=== PATIENT | female | born 1950 | race Caucasian/White ===

== ENCOUNTER → 2016-08-31 | Outpatient (REF) | payer MEDICARE, OTHER, BC ==
[~2016-08-31] MED LIST: ACET65TA OR; CIPR500T4 OR; FLAG500T OR; GLUC1000 OR; IBUP600T OR; PAIN325T OR; VICO5TAB OR
[2016-08-31 18:58] LABS: PERCENT SATURATION 28.2 % (13.2-37.4)
== END ==
LOC: M LAB REF 16:14
PROVIDERS: ATTEND Internal Medicine
DX: D64.9 Anemia, unspecified (principal)

== ENCOUNTER → 2017-01-13 | Outpatient (CLI) | payer MEDICARE, BC ==
[~2017-01-13] MED LIST changes: +CALC500T21 PO; +DOXY100C37 PO; +FERR325T16 PO; +LETR2.5T2 PO; +METF-415 PO; +MULTCAP11 PO; +OMEP40CA2 PO; +VITA1CAP2 PO; +VITA400C7 PO; +VITA500T PO
--- NOTE | 2017-01-17 09:12 | DEXA ---
AP SPINE L1 - L4 1.054 -1.1 0.5 LT FEMUR TOTAL 0.908 -0.8 0.4 RT FEMUR TOTAL 0.850 -1.3 0.0 TOTAL BODY TOTAL OTHER DUAL FEMUR FRAX* ASSESSMENT Risk factors: Not performed. 10 year probability of fracture Major osteoporotic fracture % Hip fracture % COMMENTS: There is low bone density of the spine and hips. The density of the spine is decreased 14.8% since the initial exam on 04/2004. The spine density has decreased 3.3% since the most recent exam on 01/2016. The density of the left hip has decreased 9.5% since the initial exam on 2003. The density of the left hip has decreased 1.1% since the most recent exam on 2015. The density of the right hip has decreased 11.1% since the initial exam on 2003. The density of the right hip has increased 2.7% since the most recent exam on 2015. FOLLOW-UP: Recommendation for the next bone density exam: 2 years. MARCIE
== END ==
LOC: M WHC 12:54
PROVIDERS: ATTEND Internal Medicine Medical Oncology
DX: C50.912 Malignant neoplasm of unspecified site of left female breast (principal)

== ENCOUNTER 2017-03-19 21:54 | Emergency (ER) | payer MEDICARE, BC, OTHER ==
[~2017-03-19] VITALS: Ht 162.6 cm; Wt 95.5 kg
[~2017-03-19 21:54] MED LIST changes: -CALC500T21 PO; -DOXY100C37 PO; -FERR325T16 PO; -LETR2.5T2 PO; -METF-415 PO; -MULTCAP11 PO; -OMEP40CA2 PO; -VITA1CAP2 PO; -VITA400C7 PO; -VITA500T PO
[2017-03-19 21:55] VITALS: BP 144/71
[2017-03-19] MEDS ORDERED: LETR2.5T2 PO (22:03)
[2017-03-19] MEDS ORDERED: METF-415 PO (22:03)
[2017-03-19] MEDS ORDERED: OMEP40CA2 PO (22:03)
[2017-03-19] MEDS ORDERED: CALC500T21 PO (22:03)
[2017-03-19] MEDS ORDERED: FERR325T16 PO (22:03)
[2017-03-19] MEDS ORDERED: VITA400C7 PO (22:03)
[2017-03-19] MEDS ORDERED: MULTCAP11 PO (22:03)
[2017-03-19] MEDS ORDERED: VITA500T PO (22:03)
[2017-03-19] MEDS ORDERED: VITA1CAP2 PO (22:03)
[2017-03-19] MEDS ORDERED: DOXY100C37 PO ×2 (22:25→22:47)
[2017-03-19] MEDS ORDERED: DOXYCYCLINE HYCLATE 100 MG TAB PO ONE (22:30)
== END 2017-03-19 22:32 | disposition home or self-care (01) ==
LOC: M ED 21:54
DX: L03.221 Cellulitis of neck (principal); S10.96XA Insect bite of unspecified part of neck, initial encounter; W57.XXXA Bitten or stung by nonvenomous insect and other nonvenomous arthropods, initial encounter; Y92.89 Other specified places as the place of occurrence of the external cause; Y93.89 Activity, other specified; Y99.8 Other external cause status; E11.9 Type 2 diabetes mellitus without complications; K76.0 Fatty (change of) liver, not elsewhere classified; G43.909 Migraine, unspecified, not intractable, without status migrainosus; Z85.3 Personal history of malignant neoplasm of breast; Z79.899 Other long term (current) drug therapy; Z79.84 Long term (current) use of oral hypoglycemic drugs; Z88.1 Allergy status to other antibiotic agents; Z88.2 Allergy status to sulfonamides

== ENCOUNTER → 2017-09-07 | Outpatient (CLI) | payer MEDICARE, BC, OTHER | LOC: M WUC 16:09 | DX: J70.8 Respiratory conditions due to other specified external agents (principal); T59.894A Toxic effect of other specified gases, fumes and vapors, undetermined, initial encounter | CPT/HCPCS: 71046 ==

== ENCOUNTER → 2018-02-21 | Outpatient (REF) | payer MEDICARE, OTHER ==
[2018-02-23 15:46] LABS: HPV HYBRID CAPTURE II Negative (Negative)
== END ==
LOC: M SFHCWAGY 14:50
DX: Z12.4 Encounter for screening for malignant neoplasm of cervix (principal); N95.2 Postmenopausal atrophic vaginitis
CPT/HCPCS: G0123

== ENCOUNTER → 2018-02-21 | Outpatient (CLI) | payer MEDICARE, BC | LOC: M WHC 14:13 | DX: M85.80 Other specified disorders of bone density and structure, unspecified site (principal); Z78.0 Asymptomatic menopausal state; Z12.4 Encounter for screening for malignant neoplasm of cervix; N95.2 Postmenopausal atrophic vaginitis | CPT/HCPCS: 77080; G0123 ==

== ENCOUNTER → 2018-03-21 | Outpatient (REF) | payer MEDICARE, OTHER ==
[2018-03-21 14:32] LABS: FERRITIN 14 NG/ML (8-252); IRON (FE) 67 UG/DL (50-170); PERCENT SATURATION 17.6 % (13.2-45.0); TOTAL IRON BINDING CAPACITY 381 UG/DL (250-450)
== END ==
LOC: M LAB REF 12:40
DX: D50.9 Iron deficiency anemia, unspecified (principal)
CPT/HCPCS: 83550

== ENCOUNTER → 2019-02-08 | Outpatient (CLI) | payer MEDICARE, BC ==
[~2019-02-08] MED LIST changes: +CALC500T21 PO; +CALC500T60 PO; +DOXY100C37 PO; +FERR325T16 PO; +LETR2.5T2 PO; +METF-415 PO; +MULTCAP11 PO; +MULTTAB26 PO; +OMEP40CA97 PO; +VITA-183 PO; +VITA400C5 PO; +VITA400C7 PO; +VITA500T PO
--- NOTE | 2019-02-12 11:22 | DEXA ---
AP SPINE L1 - L4 1.067 -1.0 0.6 LT FEMUR TOTAL 0.871 -1.1 0.3 LT NECK 0.846 -1.4 0.2 RT FEMUR TOTAL 0.820 -1.5 -0.1 RT NECK 0.832 -1.5 0.1 TOTAL BODY TOTAL OTHER COMMENTS: There is low bone density of the spine and hips. The decreased density of the spine does represent a significant change. The decreased density of the left hip does represent a significant change. The decreased density of the right hip does represent a significant change. The density of the spine has decreased 13.7% since the initial exam on 04/28/2004. The spine density has decreased 3.4% since the most recent exam on 02/21/2018. The density of the left hip has decreased 13.2% since the initial exam on 04/28/2004. The density of the left hip has decreased 5.2% since the initial exam on 02/21/2018. The density of the right hip has decreased 14.2% since the initial exam on 04/28/2004. The density of the right hip has decreased 2.7% since the most recent exam on 02/21/2018. FOLLOW-UP: Recommendation for the next bone density exam: 2 years. MARCIE
== END ==
LOC: M WHC 13:05
PROVIDERS: ATTEND Internal Medicine Medical Oncology
DX: Z51.81 Encounter for therapeutic drug level monitoring (principal); Z79.899 Other long term (current) drug therapy; Z85.3 Personal history of malignant neoplasm of breast; M85.851 Other specified disorders of bone density and structure, right thigh; M85.852 Other specified disorders of bone density and structure, left thigh; M85.88 Other specified disorders of bone density and structure, other site

== ENCOUNTER → 2019-10-30 | Outpatient (REF) | payer MEDICARE, OTHER ==
[~2019-10-30] MED LIST changes: +VITA-243 PO; +VITA1CAP15 PO; -VITA400C5 PO; -VITA500T PO
[2019-10-31 09:27] LABS: HEPATITIS C VIRUS ABY INDEX 0.3 INDEX (<0.8)
== END ==
LOC: M LAB REF 12:04
PROVIDERS: ATTEND Internal Medicine
DX: Z01.89 Encounter for other specified special examinations (principal); D50.9 Iron deficiency anemia, unspecified

== ENCOUNTER → 2019-11-13 | Outpatient (CLI) | payer MEDICARE, OTHER ==
--- NOTE | 2019-11-13 17:48 | REPPI ---
History of renal calculi. PRIORS: None. Two calcifications are seen superimposed over the right nephric silhouette, each measuring less than a centimeter. The left nephric silhouette is obscured by bowel content. IMPRESSION: Probable right nephroliths. Electronically Signed by Presley Mcpherson DO 11/14/2019 09:25 A
== END ==
LOC: M PLAIMG 11:36
PROVIDERS: ATTEND Nurse Practitioner Family
DX: N20.0 Calculus of kidney (principal)
CPT/HCPCS: 74018; G0463

== ENCOUNTER → 2020-01-11 | Outpatient (CLI) | payer MEDICARE, BC, OTHER ==
[~2020-01-11] MED LIST changes: +ASPI81TA26 PO; +D31000TA2 PO; +MONT10TA4 PO; +VALS40TA9 PO; -VITA1CAP15 PO; +VITA400C83 PO
== END ==
LOC: M LABSMTC 11:40
PROVIDERS: ATTEND Anesthesiology
DX: Z11.59 Encounter for screening for other viral diseases (principal)
CPT/HCPCS: C9803; U0003

== ENCOUNTER 2020-01-16 12:49 | Day surgery (SDC) | payer MEDICARE, BC, OTHER ==
[~2020-01-16] VITALS: Ht 162.6 cm; Wt 88.8 kg
[~2020-01-16 12:49] MED LIST changes: +LIDOCAINE 2% 100MG/5ML SDV (FOR ANES.) As Ordered ONE; +NS 1,000 ML IV ONE; +propofoL 200 MG/20 ML VIAL As Ordered ONE
--- NOTE | 2020-01-16 14:32 | ROOR ---
Patient Name: Marnie Tellez Procedure Date: 01/16/2020 2:14 PM Date of : 1950 Age: 69 Room: [facility] Gender: Female Note Status: Finalized Procedure: Upper Endoscopy + Biopsies Indications: Heartburn Providers: Caden Sebastian MD Referring MD: Cecile Arguello DO Requesting Provider: Medicines: Monitored Anesthesia Care Complications: No immediate complications. Procedure: Pre-Anesthesia Assessment: - The heart rate, respiratory rate, oxygen saturations, blood pressure, adequacy of pulmonary ventilation, and response to care were monitored throughout the procedure. The Endoscope was introduced through the mouth, and advanced to the second part of duodenum. The upper GI endoscopy was accomplished without difficulty. The patient tolerated the procedure well. Findings: The Z-line was regular and was found 35 cm from the incisors. A large hiatal hernia was present. Multiple dispersed, diminutive non-bleeding erosions were found in the gastric fundus. There were no stigmata of recent bleeding. Biopsies were taken with a cold forceps for Helicobacter pylori testing. The exam of the duodenum was otherwise normal. Impression: - Z-line regular, 35 cm from the incisors. - Large hiatal hernia. - Non-bleeding erosive gastropathy. Biopsied. - The examination was otherwise normal. Recommendation: - Patient has a contact number available for emergencies. The signs and symptoms of potential delayed complications were discussed with the patient. Return to normal activities tomorrow. Written discharge instructions were provided to the patient. - High fiber diet. - Discharge patient to home. - Follow an antireflux regimen. - Continue present medications. - Await pathology results. - Telephone GI clinic for pathology results in 1 week. - Return to referring physician. - The findings and recommendations were discussed with the patient. Caden Sebastian MD Caden Sebastian MD 01/16/2020 2:32:27 PM Electronically signed by Caden Sebastian MD Number of Addenda: 0 Note Initiated On: 01/16/2020 2:14 PM Estimated Blood Loss: Estimated blood loss: none.
--- NOTE | 2020-01-16 14:48 | ROOR ---
Patient Name: Marnie Tellez Procedure Date: 01/16/2020 2:14 PM Date of : 1950 Age: 69 Room: [facility] Gender: Female Note Status: Finalized Procedure: Total Colonoscopy to Cecum Indications: Screening for colorectal malignant neoplasm Providers: Caden Sebastian MD Referring MD: Cecile Arguello DO Requesting Provider: Medicines: Monitored Anesthesia Care Complications: No immediate complications. Procedure: Pre-Anesthesia Assessment: - The heart rate, respiratory rate, oxygen saturations, blood pressure, adequacy of pulmonary ventilation, and response to care were monitored throughout the procedure. The Colonoscope was introduced through the anus and advanced to the cecum, identified by appendiceal orifice and ileocecal valve. The colonoscopy was performed without difficulty. The patient tolerated the procedure well. The quality of the bowel preparation was excellent. Findings: The perianal and digital rectal examinations were normal. Non-bleeding internal hemorrhoids were found during retroflexion. The hemorrhoids were small and Grade I (internal hemorrhoids that do not prolapse). Scattered small-mouthed diverticula were found in the recto-sigmoid colon and sigmoid colon. The exam was otherwise without abnormality on direct and retroflexion views. Impression: - Non-bleeding internal hemorrhoids. - Diverticulosis in the recto-sigmoid colon and in the sigmoid colon. - The examination was otherwise normal on direct and retroflexion views. - No specimens collected. - The exam was otherwise normal to the cecum. Recommendation: - Patient has a contact number available for emergencies. The signs and symptoms of potential delayed complications were discussed with the patient. Return to normal activities tomorrow. Written discharge instructions were provided to the patient. - High fiber diet. - Discharge patient to home. - Continue present medications. - Repeat colonoscopy in 10 years for screening purposes. - Return to referring physician. - The findings and recommendations were discussed with the patient. Caden Sebastian MD Caden Sebastian MD 01/16/2020 2:47:40 PM Electronically signed by Caden Sebastian MD Number of Addenda: 0 Note Initiated On: 01/16/2020 2:14 PM Estimated Blood Loss: Estimated blood loss: none.
[2020-01-16 15:15] VITALS: BP 130/77
[2020-03-13] MEDS ORDERED: LETR2.5T2 PO (16:06)
== END 2020-01-16 15:30 | disposition home or self-care (01) ==
LOC: M OPP 12:49
PROVIDERS: ATTEND Internal Medicine Gastroenterology
DX: Z12.11 Encounter for screening for malignant neoplasm of colon (principal); K57.30 Diverticulosis of large intestine without perforation or abscess without bleeding; K64.0 First degree hemorrhoids; K44.9 Diaphragmatic hernia without obstruction or gangrene; K31.89 Other diseases of stomach and duodenum; R12 Heartburn; K21.9 Gastro-esophageal reflux disease without esophagitis; I10 Essential (primary) hypertension; E11.9 Type 2 diabetes mellitus without complications; Z90.49 Acquired absence of other specified parts of digestive tract; Z79.82 Long term (current) use of aspirin; Z79.84 Long term (current) use of oral hypoglycemic drugs; Z79.899 Other long term (current) drug therapy; Z88.1 Allergy status to other antibiotic agents; Z88.2 Allergy status to sulfonamides

== ENCOUNTER → 2020-02-11 | Outpatient (CLI) | payer MEDICARE, BC ==
[~2020-02-11] MED LIST changes: -LIDOCAINE 2% 100MG/5ML SDV (FOR ANES.) As Ordered ONE; -NS 1,000 ML IV ONE; -propofoL 200 MG/20 ML VIAL As Ordered ONE
--- NOTE | 2020-02-13 09:33 | DEXA ---
AP SPINE L1 - L4 1.088 -0.9 0.8 LT FEMUR TOTAL 0.878 -1.0 0.4 LT NECK 0.843 -1.4 0.2 RT FEMUR TOTAL 0.810 -1.6 -0.2 RT NECK 0.861 -1.3 0.4 TOTAL BODY TOTAL OTHER COMMENTS: Normal bone densitometry of the spine. There is low bone density of the hips. The increased density of the spine does represent a significant change. The increased density of the left hip does not represent significant change. The decreased density of the right hip does not represent a significant change. The density of the spine has decreased 12% since the initial exam on 04/28/2004. The increased to percent since the most recent exam on 02/08/2019. The density of the left hip has decreased 12.5% since the initial exam on 04/28/2004. The density of the left hip has increased 0.8% since the most recent exam on 02/08/2019. The density of the right hip has decreased 15.3% since the initial exam on 04/28/2004. The density of the right hip has decreased 1.2% since the most recent exam on 02/08/2019. FOLLOW-UP: Recommendation for the next bone density exam: 2 years. MARCIE
== END ==
LOC: M WHC 10:57
PROVIDERS: ATTEND Internal Medicine Medical Oncology
DX: C50.919 Malignant neoplasm of unspecified site of unspecified female breast (principal); Z79.899 Other long term (current) drug therapy; M85.851 Other specified disorders of bone density and structure, right thigh; M85.852 Other specified disorders of bone density and structure, left thigh

== ENCOUNTER → 2020-03-14 | Outpatient (REF) | payer MEDICARE, BC, OTHER ==
[2020-03-14 17:34] LABS: PERCENT SATURATION 39.8 % (13.2-45.0)
== END ==
LOC: M LAB REF 16:21
PROVIDERS: ATTEND Internal Medicine
DX: D50.9 Iron deficiency anemia, unspecified (principal)

== ENCOUNTER → 2020-08-14 | Outpatient (REF) | payer MEDICARE, OTHER ==
[~2020-08-14] MED LIST changes: +FERR324T21 PO; -FERR325T16 PO; +MONT10TA10 PO; -MONT10TA4 PO
[2020-08-14 17:24] LABS: PERCENT SATURATION 27.9 % (13.2-45.0)
== END ==
LOC: M LAB REF 16:18
PROVIDERS: ATTEND Internal Medicine
DX: D50.9 Iron deficiency anemia, unspecified (principal)

== ENCOUNTER → 2020-11-13 | Outpatient (CLI) | payer MEDICARE, BC, OTHER ==
[~2020-11-13] MED LIST changes: -DOXY100C37 PO; +DOXY1CAP62 PO; +OMEP40CA4 PO; -OMEP40CA97 PO
--- NOTE | 2020-11-13 10:02 | REP ---
INDICATION: CALCULUS OF KIDNEY. COMPARISON: 11/13/2019. TECHNIQUE: AP view abdomen and pelvis. FINDINGS: Bowel gas pattern is normal. There is no bowel obstruction. A calcification overlying the upper right renal shadow measures 7 mm, unchanged. Another calcification overlying the lower right renal shadow measures 9 mm, unchanged. A 2-3 mm calcification overlying the upper left renal shadow appears unchanged. Multiple surgical clips and sutures are seen in the pelvis. There are mild degenerative changes of the spine. IMPRESSION: Calcifications overlying the renal shadows, as discussed above, appear stable. <Electronically signed by Compa Prado > 11/13/20 [id number]
== END ==
LOC: M RAD 09:15 → M LAB 09:15
PROVIDERS: ATTEND Nurse Practitioner Family
DX: N20.0 Calculus of kidney (principal)

== ENCOUNTER → 2020-12-02 | Outpatient (CLI) | payer MEDICARE, BC, OTHER ==
--- NOTE | 2020-12-02 17:30 | REP ---
INDICATION: CALCULUS OF KIDNEY. COMPARISON: 04/08/2014 TECHNIQUE: Noncontrast scanning through the abdomen pelvis with coronal and sagittal reconstructions. FINDINGS: CT abdomen: Lung bases are clear with some minimal dependent atelectatic changes deep sulcus a posterior left lower lung zone. Heart not enlarged. There is no pericardial thickening or effusion. Moderate-sized hiatal hernia again seen and unchanged. No hepatosplenomegaly, focal hepatic mass or intrahepatic biliary dilatation. Gallbladder appears contracted but without calcified stone or mass. Visible pancreas unremarkable. There is a small splenule adjacent to the tail the pancreas and medial to the spleen, unchanged. Adrenal glands are normal. Intra-abdominal portion of the stomach was unremarkable. Abdominal portion of the colon show few scattered diverticula without colitis or diverticulitis. Small bowel loops in the abdomen proper were unremarkable. There is atherosclerotic calcification of the aorta without aneurysm. No periaortic, other retroperitoneal or mesenteric pathologic sized lymphadenopathy. There are nonobstructive calculi in the kidneys with a 3 mm calculus in upper pole pyramid on the left and a sub 3 mm cortical calcification as well as a 2 mm pyramid calcification in the lower pole. The right kidney shows an 8 mm calcification in a pyramid near interpolar/upper pole junction laterally with a 9 mm lower pole calculus and a 2 mm calculus posteriorly. Parapelvic cyst in the lower pole. There is no definite hydronephrosis. Extrarenal pelvis noted on the right right ureter without dilatation or stone all the way to the bladder. The left collecting system without dilatation. Left ureter without dilatation and shows normal course to the bladder without stone. No ventral hernia. Bone windows show T11 vertebral body hemangioma as on previous study. Discogenic endplate change T7-8 anteriorly and marginal osteophytes at multiple thoracic levels no compression fracture, spondylolysis or spondylolisthesis. Visualized lower ribs grossly intact. CT pelvis: Anastomotic suture line in the sigmoid colon as on the previous study no evidence of a mass there are few distal left colonic diverticula but no signs of diverticulitis or colitis rectum grossly unremarkable uterus anteverted not enlarged. No adnexal mass or pelvic free fluid. Bladder partially filled but no mass, wall thickening or stone evident. Cecum is unremarkable. The appendix is seen and normal. No ventral or inguinal hernia. No pathologic sized inguinal adenopathy. IMPRESSION: 1. Bilateral renal calculi, most in the pyramids with the largest 2 the right side 8 mm upper pole, 9 mm lower pole with other smaller calcifications bilaterally. No hydronephrosis or hydroureter. An extrarenal pelvis is noted on the right. No ureteral stone on either side. No bladder calculi or other finding. Right lower pole parapelvic cyst also suggested. 2. Status post colonic resection and anastomosis in the sigmoid with just a few scattered sigmoid diverticula without stricture or mass no acute inflammatory process. 3. Atherosclerotic calcification aorta and branches as before. 4. Moderate size hiatal hernia, non reducible. 5. T11 vertebral hemangioma as a benign finding, stable. <Electronically signed by Alexx Baum > 12/02/20 [id number]
== END ==
LOC: M RAD 16:22
PROVIDERS: ATTEND Nurse Practitioner Family
DX: N20.0 Calculus of kidney (principal); K44.9 Diaphragmatic hernia without obstruction or gangrene; I70.0 Atherosclerosis of aorta; Z90.49 Acquired absence of other specified parts of digestive tract

== ENCOUNTER → 2020-12-24 | Outpatient (CLI) | payer MEDICARE, BC, OTHER ==
--- NOTE | 2020-12-24 15:35 | REP ---
INDICATION: CALCULUS OF KIDNEY. COMPARISON: 09/07/2017 the latest prior TECHNIQUE: PA and lateral FINDINGS: Once again, there is a large and in fact huge hiatal hernia. The lung goodwin are clear. The pleural angles are sharp. The osseous structures are stable. The heart is not enlarged. IMPRESSION: There is no acute cardiopulmonary disease. <Electronically signed by Presley Mcpherson > 12/24/20 [id number]
== END ==
LOC: M RAD 14:56
PROVIDERS: ATTEND Nurse Practitioner Family
DX: Z01.818 Encounter for other preprocedural examination (principal); N20.0 Calculus of kidney

== ENCOUNTER → 2020-12-27 | Outpatient (CLI) | payer MEDICARE, BC, OTHER ==
[~2020-12-27] MED LIST changes: +VITA400C67 PO
== END ==
LOC: M LABSMTC 09:37
PROVIDERS: ATTEND Anesthesiology
DX: Z01.812 Encounter for preprocedural laboratory examination (principal); Z20.822 Contact with and (suspected) exposure to COVID-19

== ENCOUNTER → 2020-12-29 | Outpatient (REF) | payer MEDICARE, BC, OTHER ==
[2020-12-29 16:58] LABS: INR 0.89; PROTHROMBIN TIME 12.5 SECONDS (12.7-14.5)
== END ==
LOC: M LAB REF 16:39
PROVIDERS: ATTEND Internal Medicine
DX: Z01.818 Encounter for other preprocedural examination (principal); Z79.82 Long term (current) use of aspirin; Z79.899 Other long term (current) drug therapy

== ENCOUNTER 2021-01-01 07:48 | Day surgery (SDC) | payer MEDICARE, BC, OTHER ==
[~2021-01-01] VITALS: Ht 162.6 cm; Wt 91.1 kg
[~2021-01-01 07:48] MED LIST changes: +DOXY-443 PO; -DOXY1CAP62 PO; +LR 1,000 ML IV ONE; -MONT10TA10 PO; +MONT10TA97 PO; +ceFAZolin SOD 2 GM in IV 1 EA IV ONE
[2021-01-01] MEDS ORDERED: propofoL 500 MG/50 ML VIAL As Ordered ONE (08:05)
[2021-01-01] MEDS ORDERED: fentaNYL 100 MCG/2 ML INJECTION (J3010) As Ordered ONE (08:05)
[2021-01-01] MEDS ORDERED: MIDAZOLAM INJ 2MG/2ML VIAL (J2250 PER 1MG) As Ordered ONE (08:05)
[2021-01-01] MEDS ORDERED: LIDOCAINE 2% 100MG/5ML SDV (FOR ANES.) As Ordered ONE (08:05)
[2021-01-01] MEDS ORDERED: HYDR-3713 PO (09:47)
[2021-01-01] MEDS ORDERED: ONDANSETRON 4MG/2ML VIAL As Ordered ONE (10:00)
[2021-01-01] MEDS ORDERED: KETOROLAC 60MG 2ML VIAL As Ordered ONE (10:00)
[2021-01-01 12:25] VITALS: BP 150/75
== END 2021-01-01 13:23 | disposition home or self-care (01) ==
LOC: M SDC 07:48
PROVIDERS: ATTEND Urology
DX: N20.0 Calculus of kidney (principal); B35.1 Tinea unguium; E11.9 Type 2 diabetes mellitus without complications; E78.00 Pure hypercholesterolemia, unspecified; K21.9 Gastro-esophageal reflux disease without esophagitis; Z85.3 Personal history of malignant neoplasm of breast; Z88.1 Allergy status to other antibiotic agents; Z88.2 Allergy status to sulfonamides; Z98.51 Tubal ligation status; Z79.84 Long term (current) use of oral hypoglycemic drugs; Z79.899 Other long term (current) drug therapy
CPT/HCPCS: 50590; 74018; J0690; J1885; J2250; J2405; J3010

== ENCOUNTER → 2021-01-19 | Outpatient (CLI) | payer MEDICARE, BC, OTHER ==
[~2021-01-19] MED LIST changes: -DOXY-443 PO; +DOXY1CAP62 PO; +HYDR-3713 PO; -LR 1,000 ML IV ONE; +MONT10TA10 PO; -MONT10TA97 PO; -ceFAZolin SOD 2 GM in IV 1 EA IV ONE
--- NOTE | 2021-01-19 10:35 | REP ---
INDICATION: CALCULUS OF KIDNEY. COMPARISON: 01/01/2021 FINDINGS: The calcification seen previously in the superior pole region of the right kidney and partially superimposed over the right 11th rib is no longer evident. Other calcifications seen bilaterally appear unchanged. There are no new changes in the pelvic region. There is no change in the osseous structures. The intestinal gas pattern is nonspecific. The organ silhouettes insofar as delineated are also otherwise unchanged. IMPRESSION: As above <Electronically signed by Presley Mcpherson > 01/19/21 [id number]
== END ==
LOC: M RAD 09:47
PROVIDERS: ATTEND Urology
DX: N20.0 Calculus of kidney (principal)

== ENCOUNTER → 2021-01-22 | Outpatient (REF) | payer MEDICARE, BC, OTHER | LOC: M SMT 13:27 | PROVIDERS: ATTEND Nurse Practitioner Women's Health | DX: N20.0 Calculus of kidney (principal) ==

== ENCOUNTER → 2021-08-20 | Outpatient (REF) | payer MEDICARE, BC, OTHER ==
[~2021-08-20] MED LIST changes: -D31000TA2 PO; +DOXY-443 PO; -DOXY1CAP62 PO; -MONT10TA10 PO; +MONT10TA97 PO; +VITA100093 PO
[2021-08-20 17:47] LABS: APPEARANCE, URINE MANUAL CLEAR (CLEAR); COLOR, URINE MANUAL LT YELLOW (YELLOW); GLUCOSE, URINE (UA) MANUAL 4+(1000 MG/DL) mg/dL (NEGATIVE); PROTEIN, URINE MANUAL TRACE mg/dL (NEGATIVE)
[2021-08-20 17:48] LABS: BILIRUBIN, URINE MANUAL NEGATIVE (NEGATIVE); BLOOD URINE MANUAL POSITIVE (NEGATIVE); KETONE, URINE MANUAL NEGATIVE (NEGATIVE); LEUKOCYTE ESTERASE, URINE MAN POSITIVE (NEGATIVE); NITRITE, URINE MANUAL NEGATIVE (NEGATIVE); UROBILINOGEN, URINE MANUAL NORMAL (NORMAL)
[2021-08-20 18:09] LABS: BACTERIA, URINE SMALL AMOUNT; CALCIUM OXALATE CRYSTALS,URINE LARGE AMOUNT /hpf
[2021-08-20 18:11] LABS: YEAST, URINE SMALL AMOUNT
[2021-08-20 18:12] LABS: HYALINE CAST, URINE NONE SEEN /lpf (0-1); SQUAMOUS EPITHELIAL CELL URINE NONE SEEN /hpf (SMALL AMT); TRANSITIONAL EPI CELLS, URINE SMALL AMOUNT /hpf
== END ==
LOC: M SMT 16:35
PROVIDERS: ATTEND Urology
DX: Z87.440 Personal history of urinary (tract) infections (principal); Z79.899 Other long term (current) drug therapy

== ENCOUNTER → 2021-09-09 | Outpatient (REF) | payer MEDICARE, OTHER ==
[2021-09-09 13:28] LABS: APPEARANCE, URINE HAZY (CLEAR); BACTERIA, URINE AUTO 1+ (NEGATIVE); BILIRUBIN, URINE AUTO NEGATIVE (NEGATIVE); BLOOD, URINE BLOOD NEGATIVE (NEGATIVE); COLOR, URINE STRAW (YELLOW); GLUCOSE, URINE (UA) AUTO 3+ mg/dL (NEGATIVE); KETONE, URINE AUTO NEGATIVE (NEGATIVE); LEUKOCYTE ESTERASE, URINE AUTO 2+ (NEGATIVE); MUCUS, URINE SMALL (NEGATIVE); NITRITE, URINE AUTO NEGATIVE (NEGATIVE); PROTEIN, URINE AUTO NEGATIVE (NEGATIVE); RBC, URINE AUTO 4 /HPF (0-3); SPECIFIC GRAVITY URINE AUTO 1.029 (1.002-1.035); SQUAMOUS EPITHELIAL CELL UR AU 1 /HPF (0-6); UROBILINOGEN, URINE AUTO 0.2 mg/dL (0.0-2.0); WBC, URINE AUTO 72 /HPF (0-3)
== END ==
LOC: M SMT 12:52
PROVIDERS: ATTEND Urology
DX: R39.89 Other symptoms and signs involving the genitourinary system (principal)

== ENCOUNTER → 2021-09-30 | Outpatient (CLI) | payer MEDICARE, BC, OTHER | LOC: M WHC 09:19 | PROVIDERS: ATTEND Urology | DX: N30.00 Acute cystitis without hematuria (principal) ==

== ENCOUNTER → 2021-10-02 | Outpatient (REF) | payer MEDICARE, BC, OTHER ==
[2021-10-02 18:14] LABS: APPEARANCE, URINE HAZY (CLEAR); BACTERIA, URINE AUTO 1+ (NEGATIVE); BILIRUBIN, URINE AUTO NEGATIVE (NEGATIVE); BLOOD, URINE BLOOD NEGATIVE (NEGATIVE); COLOR, URINE YELLOW (YELLOW); GLUCOSE, URINE (UA) AUTO 3+ mg/dL (NEGATIVE); KETONE, URINE AUTO NEGATIVE (NEGATIVE); LEUKOCYTE ESTERASE, URINE AUTO 2+ (NEGATIVE); NITRITE, URINE AUTO NEGATIVE (NEGATIVE); PROTEIN, URINE AUTO NEGATIVE (NEGATIVE); RBC, URINE AUTO 3 /HPF (0-3); SPECIFIC GRAVITY URINE AUTO 1.027 (1.002-1.035); SQUAMOUS EPITHELIAL CELL UR AU 1 /HPF (0-6); UROBILINOGEN, URINE AUTO 0.2 mg/dL (0.0-2.0); WBC, URINE AUTO 39 /HPF (0-3)
== END ==
LOC: M SMT 16:41
PROVIDERS: ATTEND Urology
DX: N39.0 Urinary tract infection, site not specified (principal)

== ENCOUNTER → 2021-11-24 | Outpatient (REF) | payer MEDICARE, OTHER | LOC: M LAB REF 16:23 | PROVIDERS: ATTEND Internal Medicine | DX: D50.9 Iron deficiency anemia, unspecified (principal) ==

== ENCOUNTER → 2021-11-27 | Outpatient (REF) | payer MEDICARE, OTHER ==
[2021-11-27 14:19] LABS: APPEARANCE, URINE HAZY (CLEAR); BACTERIA, URINE AUTO 1+ (NEGATIVE); BILIRUBIN, URINE AUTO NEGATIVE (NEGATIVE); BLOOD, URINE BLOOD NEGATIVE (NEGATIVE); COLOR, URINE YELLOW (YELLOW); GLUCOSE, URINE (UA) AUTO 3+ mg/dL (NEGATIVE); KETONE, URINE AUTO NEGATIVE (NEGATIVE); LEUKOCYTE ESTERASE, URINE AUTO 3+ (NEGATIVE); MUCUS, URINE SMALL (NEGATIVE); NITRITE, URINE AUTO NEGATIVE (NEGATIVE); PROTEIN, URINE AUTO NEGATIVE (NEGATIVE); RBC, URINE AUTO 5 /HPF (0-3); SPECIFIC GRAVITY URINE AUTO 1.013 (1.002-1.035); SQUAMOUS EPITHELIAL CELL UR AU 1 /HPF (0-6); UROBILINOGEN, URINE AUTO 0.2 mg/dL (0.0-2.0); WBC, URINE AUTO 83 /HPF (0-3)
== END ==
LOC: M SMT 13:20
PROVIDERS: ATTEND Urology
DX: N30.00 Acute cystitis without hematuria (principal)

== ENCOUNTER → 2021-12-10 | Outpatient (CLI) | payer MEDICARE, OTHER ==
[~2021-12-10] MED LIST changes: +GASTROGRAFIN SOLUTION 30ML (Q9963) As Ordered ONE; +ISOVUE-370 76% 100ML VIAL As Ordered ONE
== END ==
LOC: M RAD 15:20
PROVIDERS: ATTEND Internal Medicine
DX: N20.2 Calculus of kidney with calculus of ureter (principal); K57.30 Diverticulosis of large intestine without perforation or abscess without bleeding; K44.9 Diaphragmatic hernia without obstruction or gangrene; R10.2 Pelvic and perineal pain
CPT/HCPCS: 74178; Q9963; Q9967

== ENCOUNTER → 2022-02-11 | Outpatient (CLI) | payer MEDICARE, BC, OTHER ==
[~2022-02-11] MED LIST changes: -GASTROGRAFIN SOLUTION 30ML (Q9963) As Ordered ONE; -ISOVUE-370 76% 100ML VIAL As Ordered ONE
== END ==
LOC: M WHC 09:39
PROVIDERS: ATTEND Internal Medicine Medical Oncology
DX: M85.89 Other specified disorders of bone density and structure, multiple sites (principal)

== ENCOUNTER → 2022-04-23 | Outpatient (REF) | payer MEDICARE, BC, OTHER ==
[2022-04-23 17:59] LABS: PERCENT SATURATION 22.5 % (13.2-45.0)
[2022-04-23 18:02] LABS: FERRITIN 12.4 NG/ML (7.3-270.7)
== END ==
LOC: M LAB REF 17:01
PROVIDERS: ATTEND Internal Medicine
DX: D50.9 Iron deficiency anemia, unspecified (principal)

== ENCOUNTER → 2022-10-25 | Outpatient (REF) | payer MEDICARE, BC, OTHER ==
[~2022-10-25] MED LIST changes: +VITA400T26 PO
[2022-10-25 13:26] LABS: PERCENT SATURATION 12.8 % (13.2-45.0)
[2022-10-25 13:28] LABS: FERRITIN 14.3 NG/ML (7.3-270.7)
== END ==
LOC: M LAB REF 12:07
PROVIDERS: ATTEND Internal Medicine
DX: D50.9 Iron deficiency anemia, unspecified (principal)

== ENCOUNTER → 2023-10-31 | Outpatient (REF) | payer MEDICARE, OTHER ==
[~2023-10-31] MED LIST changes: +DOXY-323 PO; -DOXY-443 PO
[2023-10-31 16:42] LABS: FERRITIN 13.8 NG/ML (7.3-270.7)
== END ==
LOC: M LAB REF 16:22
PROVIDERS: ATTEND Internal Medicine
DX: D50.9 Iron deficiency anemia, unspecified (principal)

== ENCOUNTER → 2024-02-13 | Outpatient (CLI) | payer MEDICARE, BC ==
[~2024-02-13] MED LIST changes: -DOXY-323 PO; +DOXY-441 PO; +FARX1TAB3; +TRUL10IN
== END ==
LOC: M WHC 09:56
PROVIDERS: ATTEND Internal Medicine Medical Oncology
DX: M81.0 Age-related osteoporosis without current pathological fracture (principal)

== ENCOUNTER → 2024-04-20 | Outpatient (REF) | payer MEDICARE, OTHER ==
[2024-04-20 20:06] LABS: PERCENT SATURATION 17.3 % (13.2-45.0)
[2024-04-20 20:09] LABS: FERRITIN 30.5 NG/ML (7.3-270.7)
== END ==
LOC: M LAB REF 16:28
PROVIDERS: ATTEND Internal Medicine
DX: D50.9 Iron deficiency anemia, unspecified (principal)

== ENCOUNTER → 2024-07-26 | Outpatient (REF) | payer MEDICARE, OTHER | LOC: M LAB REF 15:21 | PROVIDERS: ATTEND Internal Medicine | DX: M25.512 Pain in left shoulder (principal) ==

== ENCOUNTER → 2025-01-03 | Outpatient (REF) | payer MEDICARE, BC, OTHER | LOC: M LAB REF 14:50 | PROVIDERS: ATTEND Internal Medicine | DX: N39.0 Urinary tract infection, site not specified (principal) ==

== ENCOUNTER → 2025-01-04 | Outpatient (CLI) | payer MEDICARE, BC | LOC: M PLAIMG 11:30 | PROVIDERS: ATTEND Internal Medicine | DX: R31.9 Hematuria, unspecified (principal) ==

== ENCOUNTER → 2025-01-10 | Outpatient (REF) | payer MEDICARE, BC | LOC: M LAB REF 12:29 | PROVIDERS: ATTEND Internal Medicine | DX: R31.9 Hematuria, unspecified (principal) ==

== ENCOUNTER → 2025-01-18 | Outpatient (REF) | payer MEDICARE, OTHER | LOC: M LAB REF 13:40 | PROVIDERS: ATTEND Internal Medicine | DX: R31.9 Hematuria, unspecified (principal) ==

== ENCOUNTER → 2025-01-22 | Outpatient (REF) | payer MEDICARE, OTHER | LOC: M LAB REF 12:07 | PROVIDERS: ATTEND Internal Medicine | DX: N39.0 Urinary tract infection, site not specified (principal) ==

== ENCOUNTER → 2025-02-04 | Outpatient (REF) | payer MEDICARE, BC | LOC: M LAB REF 11:57 | PROVIDERS: ATTEND Internal Medicine | DX: R31.9 Hematuria, unspecified (principal) ==

== ENCOUNTER → 2025-02-10 | Outpatient (CLI) | payer MEDICARE, BC ==
[~2025-02-10] MED LIST changes: +ECOT81TA5 PO
== END ==
LOC: M SLEEP 20:00
PROVIDERS: ATTEND Physician Assistant
DX: G47.33 Obstructive sleep apnea (adult) (pediatric) (principal)

== ENCOUNTER 2025-03-08 11:41 | Day surgery (SDC) | payer MEDICARE, BC ==
[~2025-03-08] VITALS: Ht 162.6 cm; Wt 90.7 kg
[2025-03-08 12:12] LABS: PLATELET COUNT, AUTOMATED 165 10^3/uL (150-450)
[2025-03-08] MEDS ORDERED: KETOROLAC 30 MG/ML 1 ML VIAL As Ordered ONE (12:38)
[2025-03-08] MEDS ORDERED: ACETAMINOPHEN 1000MG/100ML IV BAG As Ordered ONE (12:38)
[2025-03-08] MEDS ORDERED: LIDOCAINE 2% 100 MG/5 ML SDV (FOR ANES.) As Ordered ONE (12:38)
[2025-03-08] MEDS ORDERED: ONDANSETRON 4MG/2ML VIAL As Ordered ONE (12:38)
[2025-03-08] MEDS ORDERED: dexAMETHasone 4 MG/ML 1 ML VIAL As Ordered ONE (12:38)
[2025-03-08] MEDS ORDERED: MIDAZOLAM INJ 2 MG/2 ML VIAL As Ordered ONE (12:39)
[2025-03-08 12:40] LABS: ALT/SGPT 24 U/L (7.0-40); AST/SGOT 16 U/L (<34); CALCIUM LEVEL 9.0 MG/DL (8.3-10.6); CARBON DIOXIDE LEVEL 30 MMOL/L (20-31); CHLORIDE LEVEL 104 MMOL/L (98-107); CREATININE FOR GFR 0.56 MG/DL (0.55-1.30); GLOMERULAR FILTRATION RATE > 90.0 (>39); POTASSIUM SERUM 4.2 MMOL/L (3.5-5.1); SODIUM LEVEL 142 MMOL/L (136-145)
[2025-03-08] MEDS: LIDOCAINE 1% SDV 30 ML VIAL As Ordered ONE (13:25)
[2025-03-08] MEDS ORDERED: MEPERIDINE 25 MG/ML 1 ML VIAL IV PRN (13:55)
[2025-03-08] MEDS: ONDANSETRON 4MG/2ML VIAL IV PRN (14:18)
[2025-03-08 15:16] VITALS: BP 129/73; TEMP 96.9; O2SAT 91
== END 2025-03-08 15:55 | disposition home or self-care (01) ==
LOC: M SDC 11:41
PROVIDERS: ATTEND Obstetrics & Gynecology
DX: N84.0 Polyp of corpus uteri (principal); N95.0 Postmenopausal bleeding; E11.9 Type 2 diabetes mellitus without complications; I10 Essential (primary) hypertension; Z98.51 Tubal ligation status; D64.9 Anemia, unspecified; Z79.899 Other long term (current) drug therapy; Z79.82 Long term (current) use of aspirin; Z79.85 Long-term (current) use of injectable non-insulin antidiabetic drugs; K21.9 Gastro-esophageal reflux disease without esophagitis; Z85.3 Personal history of malignant neoplasm of breast; Z90.49 Acquired absence of other specified parts of digestive tract; Z88.2 Allergy status to sulfonamides; Z88.1 Allergy status to other antibiotic agents
CPT/HCPCS: 36415; 58558; 80053; 85027; 88305; J0131; J1100; J1885; J2250; J2405; J3010